=== PATIENT | male | born 1995 | race Caucasian/White ===

== ENCOUNTER 2018-06-01 15:20 | Inpatient (IN) | payer OTHER ==
--- NOTE | 2018-06-01 16:04 | ED ---
Abdominal Pain HPI - General Chief Complaint: Abdominal Pain Stated Complaint: GI issues Time Seen by Provider: 06/01/18 15:27 Source: patient, EMS, RN notes reviewed, old records reviewed Mode of arrival: EMS Limitations: no limitations - History of Present Illness Initial Comments: Patient is a 22-year-old male who presents emergency room stating she's complained of a bowel obstruction. Patient was transferred from [facility]. Patient was having diffuse lower abdominal pain for the past 3-4 days. Patient reports it was more severe and he has had vomiting episodes starting at 6 AM. Patient was started on IV fluids and lab work was obtained here. Had an elevated white blood cell count of 29.9 and lactic acid of 4.4. Patient was started on Avelox and Flagyl. Patient arrives to emergency department stating that he has no complaints at this time. They did arrive with an NG tube. - Related Data Home Medications Medication Instructions Recorded Confirmed Albuterol Inhaler [Ventolin Hfa 2 puff INHALATION RT-Q4H PRN 06/01/18 06/01/18 Inhaler] Fluticasone Nasal [place] [Flonase 1 spray EA NOSTRIL DAILY 06/01/18 06/01/18 Nasal [place]] Methylphenidate HCl 30 mg PO QAM 06/01/18 06/01/18 [Methylphenidate HCl CD] Ranitidine HCl [Zantac] 150 mg PO HS 06/01/18 06/01/18 cloNIDine HCL [Catapres] 0.1 mg PO BID 06/01/18 06/01/18 cloNIDine HCL [Catapres] 0.2 mg PO HS 06/01/18 06/01/18 Allergies Allergy/AdvReac Type Severity Reaction Status Date / Time Penicillins Allergy Unknown Verified 06/01/18 15:29 Childhood Review of Systems ROS Statement: Those systems with pertinent positive or pertinent negative responses have been documented in the HPI. ROS Other: All systems not noted in ROS Statement are negative. Past Medical History Past Medical History: GERD/Reflux History of Any Multi-Drug Resistant Organisms: None Reported Past Surgical History: No Surgical Hx Reported Past Psychological History: No Psychological Hx Reported Smoking Status: Never smoker Past Alcohol Use History: None Reported Past Drug Use History: None Reported General Exam - General Exam Comments Initial Comments: Patient is a 22-year-old male. Alert and oriented. Patient has NG tube in place. He appears in no acute distress at this time. Limitations: no limitations General appearance: alert, in no apparent distress Head exam: Present: atraumatic, normocephalic, normal inspection Eye exam: Present: normal appearance, PERRL, EOMI. Absent: scleral icterus, conjunctival injection, periorbital swelling ENT exam: Present: normal exam, mucous membranes moist, other ( has NG tube in place.) Neck exam: Present: normal inspection. Absent: tenderness, meningismus, lymphadenopathy Respiratory exam: Present: normal lung sounds bilaterally. Absent: respiratory distress, wheezes, rales, rhonchi, stridor Cardiovascular Exam: Present: regular rate, normal rhythm, normal heart sounds. Absent: systolic murmur, diastolic murmur, rubs, gallop, clicks GI/Abdominal exam: Present: soft, diminished bowel sounds, other (Left lower quadrant tenderness.). Absent: distended, tenderness, guarding, rebound, rigid , normal bowel sounds Extremities exam: Present: normal inspection, full ROM, normal capillary refill. Absent: tenderness, pedal edema, joint swelling, calf tenderness Back exam: Present: normal inspection Neurological exam: Present: alert, oriented X3, CN II-XII intact Psychiatric exam: Present: normal affect, normal mood Skin exam: Present: warm, dry, intact, normal color. Absent: rash Course Vital Signs 06/01/18 15:30 Temperature 97.9 F Pulse Rate 103 H Respiratory 20 Rate Blood Pressure 134/91 O2 Sat by Pulse 98 Oximetry Medical Decision Making - Medical Decision Making Patient is a 22-year-old male transferred from [facility] presents emergency Department with a diagnosis of small bowel obstruction. He was found to have significantly elevated white blood cell count 29.9 and lactic acid of 4.4. He was given a liter bolus, Flagyl and Avelox. Patient is very thin, no significant past medical history. CT report states this follows, numerous dilated small bowel loops with air-fluid levels measuring up to 4.6 cm there is prominent fluid distention of the stomach and even fluid distention of the lower esophagus. Findings suggestive of a high-grade small bowel obstruction. Some distal small bowel loops are completely collapsed further supporting small bowel obstruction. The cecum is low-lying pain in the posterior pelvis. Suspected transition point due to be somewhere in this location. Unable to delineate structures including appendix due to lack of contrast. There is no evidence of free air. Patient had a proximally 600 mL of fluid from the NG tube. He has been resting comfortably bed at this time. We'll continue the antibiotics and fluids for the Patient. Case discussed with Dr. Baxter by Dr. Wang. - Radiology Data Radiology results: report reviewed Numerous dilated small bowel loops with air-fluid levels measuring up to 4.6 cm there is prominent fluid distention of the stomach and even fluid distention of the lower esophagus. Findings suggestive of a high-grade small bowel obstruction. Some distal small bowel loops are completely collapsed further supporting small bowel obstruction. The cecum is low-lying pain in the posterior pelvis. Suspected transition point due to be somewhere in this location. Unable to delineate structures including appendix due to lack of contrast. There is no evidence of free air. Disposition Clinical Impression: SBO (small bowel obstruction), Leukocytosis, Lactic acid acidosis Disposition: ADMITTED IP TO THIS [facility] Condition: Stable Is patient prescribed a controlled substance at d/c from ED?: No Referrals: Edgardo Romero MD [Primary Care Provider] - 1-2 days Time of Disposition: 17:09
[2018-06-01] MEDS ORDERED: ONDANSETRON 4 MG/2 ML VIAL IVP PRN (17:10)
[2018-06-01] MEDS ORDERED: NALOXONE 0.4 MG/ML 1 ML VIAL IV PRN (17:10)
[2018-06-01] MEDS ORDERED: LEVOFLOXACIN 500MG-D5W PMX 500 MG in DEXTROSE/WATER 1 100ML.BAG IVPB STA (17:16)
[2018-06-01] MEDS: MORPHINE SULFATE 4 MG/ML SYRINGE IV PRN (17:34)
[2018-06-01] MEDS: SODIUM CHLORIDE 0.9% 1,000 ML IV SCH ×2 (17:34→21:32)
[2018-06-01 18:32] LABS: Basophils % (A) 0 %; Eosinophils % (A) 0 %; HCT 53.8 % (39.0-53.0); Lymphocytes # (A) 0.7 k/uL (1.0-4.8); Lymphocytes % (A) 3 %; MCH 30.5 pg (25.0-35.0); MCHC 33.5 g/dL (31.0-37.0); Mean Platelet Volume 7.5; Monocytes # (A) 1.2 k/uL (0-1.0); Monocytes % (A) 5 %; Neutrophils # (A) 20.7 k/uL (1.3-7.7); Neutrophils % (A) 90 %; Platelet Count 320 k/uL (150-450); RBC 5.91 m/uL (4.30-5.90); RDW 12.6 % (11.5-15.5); WBC 22.9 k/uL (3.8-10.6)
[2018-06-01 18:48] LABS: Albumin 5.1 g/dL (3.5-5.0); Calcium 10.2 mg/dL (8.4-10.2); Potassium 5.3 mmol/L (3.5-5.1); Total Bilirubin 0.6 mg/dL (0.2-1.3)
[2018-06-01] MEDS ORDERED: SODIUM CHLORIDE 0.9% 1,000 ML IV ONE (19:23)
[2018-06-01] MEDS: metroNIDAZOLE-NS PMX 500 MG in SALINE 1 100ML.BAG IVPB SCH (19:28)
--- NOTE | 2018-06-01 19:28 | P.GSHP ---
History of Present Illness H&P Date: 06/01/18 Chief Complaint: Small bowel obstruction 22-year-old male presents to [facility] with complaints of abdominal pain that began 3-4 days ago. He states to me that the pain can mainly yesterday. He says he has not ate or drank anything in the last 24-48 hours however. No history of similar events in the past. Pain was bilateral lower quadrants. Nonlocalizing. Denied fevers. In the ER at the outside institution his white count was noted to be elevated at 29.9. Lactic acid 4.4. Repeat labs here show a slightly improved white blood cell count with a normal lactic acid of 2. Amylase is slightly elevated. Nasogastric tube was placed with significant output reportedly. Patient denies any previous abdominal surgeries. Usually has one bowel movement per day. No rectal bleeding. No family history of inflammatory bowel disease. CAT scan showed distal high-grade small bowel obstruction. Structures difficult to visualize because of the patient's lack of intra-abdominal fat. Patient says his pain is improved currently. - Review of Systems Comment: The patient denies any acute changes in vision or hearing, no dysphagia or odynophagia, no chest pain or shortness of breath, no dysuria or hematuria, no headache, no runny nose, no rectal bleeding or melena, no unexplained weight loss Past Medical History Past Medical History: GERD/Reflux History of Any Multi-Drug Resistant Organisms: None Reported Past Surgical History: No Surgical Hx Reported Past Psychological History: No Psychological Hx Reported Smoking Status: Never smoker Past Alcohol Use History: None Reported Past Drug Use History: None Reported Medications and Allergies Home Medications Medication Instructions Recorded Confirmed Type Albuterol Inhaler [Ventolin Hfa 2 puff INHALATION RT-Q4H PRN 06/01/18 06/01/18 History Inhaler] Fluticasone Nasal [place] [Flonase 1 spray EA NOSTRIL DAILY 06/01/18 06/01/18 History Nasal [place]] Methylphenidate HCl 30 mg PO QAM 06/01/18 06/01/18 History [Methylphenidate HCl CD] Ranitidine HCl [Zantac] 150 mg PO HS 06/01/18 06/01/18 History cloNIDine HCL [Catapres] 0.1 mg PO BID 06/01/18 06/01/18 History cloNIDine HCL [Catapres] 0.2 mg PO HS 06/01/18 06/01/18 History Allergies Allergy/AdvReac Type Severity Reaction Status Date / Time Penicillins Allergy Unknown Verified 06/01/18 15:29 Childhood Surgical - Exam Vital Signs Temp Pulse Resp BP Pulse Ox 97.9 F 103 H 20 134/91 98 06/01/18 15:30 06/01/18 15:30 06/01/18 15:30 06/01/18 15:30 06/01/18 15:30 Physical exam: General: Thin white male appears slightly malnourished HEENT: Normocephalic, sclerae nonicteric Abdomen: Slightly distended, mild diffuse tenderness increased left lower quadrant Extremities: No edema Neuro: Alert and oriented Results - Labs 06/01/18 18:15 06/01/18 18:15 Abnormal Lab Results - Last 24 Hours (Table) 06/01/18 06/01/18 Range/Units 18:15 18:15 WBC 22.9 H (3.8-10.6) k/uL RBC 5.91 H (4.30-5.90) m/uL Hgb 18.0 H (13.0-17.5) gm/dL Hct 53.8 H (39.0-53.0) % Neutrophils # 20.7 H (1.3-7.7) k/uL Lymphocytes # 0.7 L (1.0-4.8) k/uL Monocytes # 1.2 H (0-1.0) k/uL Potassium 5.3 H (3.5-5.1) mmol/L BUN 31 H (9-20) mg/dL Creatinine 2.31 H (0.66-1.25) mg/dL Glucose 109 H (74-99) mg/dL ALT 14 L (21-72) U/L Total Protein 9.0 H (6.3-8.2) g/dL Albumin 5.1 H (3.5-5.0) g/dL Diabetes panel 06/01/18 Range/Units 18:15 Sodium 145 (137-145) mmol/L Potassium 5.3 H (3.5-5.1) mmol/L Chloride 106 (98-107) mmol/L Carbon Dioxide 24 (22-30) mmol/L BUN 31 H (9-20) mg/dL Creatinine 2.31 H (0.66-1.25) mg/dL Glucose 109 H (74-99) mg/dL Calcium 10.2 (8.4-10.2) mg/dL AST 27 (17-59) U/L ALT 14 L (21-72) U/L Alkaline Phosphatase 63 (38-126) U/L Total Protein 9.0 H (6.3-8.2) g/dL Albumin 5.1 H (3.5-5.0) g/dL Calcium panel 06/01/18 Range/Units 18:15 Calcium 10.2 (8.4-10.2) mg/dL Albumin 5.1 H (3.5-5.0) g/dL Pituitary panel 06/01/18 Range/Units 18:15 Sodium 145 (137-145) mmol/L Potassium 5.3 H (3.5-5.1) mmol/L Chloride 106 (98-107) mmol/L Carbon Dioxide 24 (22-30) mmol/L BUN 31 H (9-20) mg/dL Creatinine 2.31 H (0.66-1.25) mg/dL Glucose 109 H (74-99) mg/dL Calcium 10.2 (8.4-10.2) mg/dL Adrenal panel 06/01/18 Range/Units 18:15 Sodium 145 (137-145) mmol/L Potassium 5.3 H (3.5-5.1) mmol/L Chloride 106 (98-107) mmol/L Carbon Dioxide 24 (22-30) mmol/L BUN 31 H (9-20) mg/dL Creatinine 2.31 H (0.66-1.25) mg/dL Glucose 109 H (74-99) mg/dL Calcium 10.2 (8.4-10.2) mg/dL Total Bilirubin 0.6 (0.2-1.3) mg/dL AST 27 (17-59) U/L ALT 14 L (21-72) U/L Alkaline Phosphatase 63 (38-126) U/L Total Protein 9.0 H (6.3-8.2) g/dL Albumin 5.1 H (3.5-5.0) g/dL Assessment and Plan (1) SBO (small bowel obstruction) Narrative/Plan: 22-year-old male admitted to the hospital appearing quite ill on arrival. Doing better currently. CAT scan suggesting high-grade small bowel obstruction. Etiology unclear. We'll review recent CAT scan. Tentatively will plan diagnostic laparoscopy tomorrow unless findings on CAT scan strongly support the diagnosis of inflammatory bowel disease which does not appear to be the case. Current Visit: Yes Status: Acute Code(s): K56.609 - UNSP INTESTNL OBST, UNSP TO PARTIAL VERSUS COMPLETE OBST SNOMED Code(s): 018619210
[2018-06-02] MEDS: HEPARIN SODIUM,PORCINE 5,000 UNIT/ML 1 ML VIAL SQ SCH ×3 (00:11→17:39)
[2018-06-02] MEDS: MORPHINE SULFATE 4 MG/ML SYRINGE IV PRN ×2 (01:13→17:38)
[2018-06-02 01:36] LABS: Glucose,Whole Blood 98 mg/dL (75-99)
[2018-06-02] MEDS: metroNIDAZOLE-NS PMX 500 MG in SALINE 1 100ML.BAG IVPB SCH ×3 (02:34→18:51)
[2018-06-02] MEDS: SODIUM CHLORIDE 0.9% 1,000 ML IV SCH ×6 (02:37→22:13)
[2018-06-02] MEDS: PANTOPRAZOLE 40 MG/10 ML VIAL IV SCH (08:49)
[2018-06-02 08:52] LABS: Basophils % (A) 0 %; Eosinophils # (A) 0.1 k/uL (0-0.7); Eosinophils % (A) 1 %; HCT 49.1 % (39.0-53.0); HGB 15.7 gm/dL (13.0-17.5); Lymphocytes # (A) 0.7 k/uL (1.0-4.8); Lymphocytes % (A) 7 %; MCH 29.2 pg (25.0-35.0); MCHC 31.9 g/dL (31.0-37.0); MCV 91.8 fL (80.0-100.0); Mean Platelet Volume 7.7; Monocytes # (A) 0.9 k/uL (0-1.0); Monocytes % (A) 8 %; Neutrophils # (A) 8.4 k/uL (1.3-7.7); Neutrophils % (A) 82 %; Platelet Count 266 k/uL (150-450); RBC 5.36 m/uL (4.30-5.90); RDW 12.5 % (11.5-15.5); WBC 10.3 k/uL (3.8-10.6)
[2018-06-02 09:04] LABS: Albumin 3.7 g/dL (3.5-5.0); Calcium 8.7 mg/dL (8.4-10.2); Potassium 4.8 mmol/L (3.5-5.1); Total Bilirubin 0.8 mg/dL (0.2-1.3); Total Protein 6.7 g/dL (6.3-8.2)
[2018-06-02] MEDS ORDERED: ALBUTEROL NEBULIZED 2.5 MG/3 ML INHALATION PRN (12:41)
--- NOTE | 2018-06-02 12:44 | P.CONS ---
History of Present Illness - Reason for Consult lactic acidosis leukocytosisacute renal failure - History of Present Illness patient is a [id number] gentleman with known history of gastric reflux disease came in with comments of nausea vomiting multiple episodes for last 3-4 days and this has been going on since . Patient is found to have small bowel obstructionNG tube was placed and patient has significant output from since today morning patient had about a liter for from the NG tube patient is going for diagnostic laparoscopy laparoscopic patient's white blood cell count is elevated troponin and thousand with elevated lactic acid of 4.4 and creatinine of 2.5 all of which is getting better patient is an 1 50 mL of normal saline and patient's abdominal pain is better at this time. Patient had severe abdominal pain sharp in nature diffuse. Review of Systems REVIEW OF SYSTEMS: CONSTITUTIONAL: No fever, no malaise, no fatigue. HEENT: No recent visual problems or hearing problems. Denied any sore throat. CARDIOVASCULAR: No chest pain, orthopnea, PND, no palpitations, no syncope. PULMONARY: No shortness of breath, no cough, no hemoptysis. GASTROINTESTINAL:as mentioned in HPI NEUROLOGICAL: No headaches, no weakness, no numbness. HEMATOLOGICAL: Denies any bleeding or petechiae. GENITOURINARY: Denies any burning micturition, frequency, or urgency. MUSCULOSKELETAL/RHEUMATOLOGICAL: Denies any joint pain, swelling, or any muscle pain. ENDOCRINE: Denies any polyuria or polydipsia. The rest of the 14-point review of systems is negative. Past Medical History Past Medical History: GERD/Reflux History of Any Multi-Drug Resistant Organisms: None Reported Past Surgical History: No Surgical Hx Reported Past Anesthesia/Blood Transfusion Reactions: No Reported Reaction Past Psychological History: No Psychological Hx Reported Smoking Status: Never smoker Past Alcohol Use History: None Reported Past Drug Use History: None Reported - Past Family History Mother Family Medical History: Diabetes Mellitus Medications and Allergies Home Medications Medication Instructions Recorded Confirmed Type Albuterol Inhaler [Ventolin Hfa 2 puff INHALATION RT-Q4H PRN 06/01/18 06/01/18 History Inhaler] Fluticasone Nasal [place] [Flonase 1 spray EA NOSTRIL DAILY 06/01/18 06/01/18 History Nasal [place]] Methylphenidate HCl 30 mg PO QAM 06/01/18 06/01/18 History [Methylphenidate HCl CD] Ranitidine HCl [Zantac] 150 mg PO HS 06/01/18 06/01/18 History cloNIDine HCL [Catapres] 0.1 mg PO BID 06/01/18 06/01/18 History cloNIDine HCL [Catapres] 0.2 mg PO HS 06/01/18 06/01/18 History Allergies Allergy/AdvReac Type Severity Reaction Status Date / Time Penicillins Allergy Unknown Verified 06/01/18 15:29 Childhood Physical Exam Vitals: Vital Signs Temp Pulse Pulse Resp BP BP Pulse Ox 06/02/18 07:16 98.0 F 62 133/81 98 06/02/18 01:19 97.7 F 96 16 135/82 96 06/02/18 01:00 97.9 F 71 16 143/87 99 06/02/18 00:27 97.3 F L 75 16 161/97 97 06/01/18 22:39 97.8 F 71 16 130/84 99 06/01/18 19:30 97.8 F 67 17 130/83 94 L 06/01/18 15:30 97.9 F 103 H 20 134/91 98 Intake and Output 06/01/18 06/02/18 06/02/18 22:59 06:59 14:59 Intake Total 2200 Output Total 200 400 300 Balance -200 1800 -300 Intake: Intake, IV Titration 2200 Amount Sodium Chloride 0.9% 1, 1200 000 ml @ 150 mls/hr IV . Q6H40M [facility] Rx#:[id number] Sodium Chloride 0.9% 1, 1000 000 ml @ 999 mls/hr IV . Q1H1M [facility] Rx#:[id number] Output: Urine 200 400 300 Other: Voiding Method Urinal Urinal Weight 52.163 kg PHYSICAL EXAMINATION: GENERAL: The patient is alert and oriented x3, not in any acute distress. Thin built dry mucous membranes has an NG tube in place draining about 1 L this morning HEENT: Pupils are round and equally reacting to light. EOMI. No scleral icterus. No conjunctival pallor. Normocephalic, atraumatic. No pharyngeal erythema. No thyromegaly. CARDIOVASCULAR: S1 and S2 present. No murmurs, rubs, or gallops. PULMONARY: Chest is clear to auscultation, no wheezing or crackles. ABDOMEN: Soft, nontender no rebound or rigidity sluggish bowels sounds MUSCULOSKELETAL: No joint swelling or deformity. EXTREMITIES: No cyanosis, clubbing, or pedal edema. NEUROLOGICAL: Gross neurological examination did not reveal any focal deficits. SKIN: No rashes. Results CBC & Chem 7: 06/02/18 06:54 06/02/18 06:54 Labs: Abnormal Lab Results - Last 24 Hours (Table) 06/01/18 06/01/18 06/02/18 Range/Units 18:15 18:15 06:54 WBC 22.9 H (3.8-10.6) k/uL RBC 5.91 H (4.30-5.90) m/uL Hgb 18.0 H (13.0-17.5) gm/dL Hct 53.8 H (39.0-53.0) % Neutrophils # 20.7 H 8.4 H (1.3-7.7) k/uL Lymphocytes # 0.7 L 0.7 L (1.0-4.8) k/uL Monocytes # 1.2 H (0-1.0) k/uL Potassium 5.3 H (3.5-5.1) mmol/L Chloride (98-107) mmol/L BUN 31 H (9-20) mg/dL Creatinine 2.31 H (0.66-1.25) mg/dL Glucose 109 H (74-99) mg/dL ALT 14 L (21-72) U/L Total Protein 9.0 H (6.3-8.2) g/dL Albumin 5.1 H (3.5-5.0) g/dL Amylase (30-110) U/L 06/02/18 Range/Units 06:54 WBC (3.8-10.6) k/uL RBC (4.30-5.90) m/uL Hgb (13.0-17.5) gm/dL Hct (39.0-53.0) % Neutrophils # (1.3-7.7) k/uL Lymphocytes # (1.0-4.8) k/uL Monocytes # (0-1.0) k/uL Potassium (3.5-5.1) mmol/L Chloride 112 H (98-107) mmol/L BUN 36 H (9-20) mg/dL Creatinine 1.78 H (0.66-1.25) mg/dL Glucose (74-99) mg/dL ALT 16 L (21-72) U/L Total Protein (6.3-8.2) g/dL Albumin (3.5-5.0) g/dL Amylase 169 H (30-110) U/L Assessment and Plan Plan: -small bowel obstruction: Diagnostic laparoscopy today, patient is an NG tube in place IV fluids at 1 50 mL per hour -Acute renal failure: Secondary to severe intravascular did 100 patient nausea vomiting improving now present creatinine is 1.5 can you to IV fluids expected to improve with IV fluids -Leukocytosis reactive in nature may not require any antibiotics presently on levofloxacin and metronidazole which will be continued until the surgery is done probably can be discontinued after surgery depending on operative findings -lactic is doses: Secondary to severe intravascular depletion from nausea vomiting anion gap and non-anion gap and work acidosis secondary to lactic acidosis and hyperkalemia respectively -psychiatric issues: medications will be resumed as necessary can -Gastroesophageal reflux disease patient is presently on Protonix
[2018-06-02] MEDS ORDERED: LACTATED RINGERS 1,000 ML IV ONE ×3 (12:53→15:07)
[2018-06-02] MEDS ORDERED: ESMOLOL 100 MG/10 ML VIAL ONE (13:41)
[2018-06-02] MEDS ORDERED: SUCCINYLCHOLINE CHLORIDE 100 MG/5 ML SYR IV ONE (13:41)
[2018-06-02] MEDS ORDERED: KETAMINE 10 MG/ML 20 ML VIAL ONE (13:41)
[2018-06-02] MEDS ORDERED: PROPOFOL 10 MG/ML 20 ML VIAL IV ONE (13:41)
[2018-06-02] MEDS ORDERED: LIDOCAINE 1% INJ 10MG/ML (20 ML MDV) ONE (13:41)
[2018-06-02] MEDS ORDERED: NEOSTIGMINE 1 MG/ML 10 ML VIAL ONE (13:41)
[2018-06-02] MEDS ORDERED: GLYCOPYRROLATE 0.2 MG/ML 2 ML VIAL ONE (13:41)
[2018-06-02] MEDS ORDERED: fentaNYL (PF) 50 MCG/ML 2 ML AMP ONE (13:41)
[2018-06-02] MEDS ORDERED: ROCURONIUM BROMIDE 10 MG/ML 10 ML VIAL IV ONE (13:41)
[2018-06-02] MEDS ORDERED: MIDAZOLAM 2 MG/2 ML VIAL ONE (13:41)
[2018-06-02] MEDS ORDERED: BUPIVACAIN-EPI 0.25%-1:200,000 30 ML VIAL SQ ONE ×2 (14:09)
[2018-06-02] MEDS ORDERED: HYDROmorphone 1 MG/ML 1 ML SYRINGE IVP ONE (15:53)
--- NOTE | 2018-06-02 17:31 | P.OP ---
Date of Procedure: 06/02/18 Procedure(s) Performed: PREOPERATIVE DIAGNOSIS: Small bowel obstruction POSTOPERATIVE DIAGNOSIS: Small bowel obstruction secondary to adhesions/Meckel' s diverticulum PROCEDURE: Laparoscopic lysis of adhesions, mini laparotomy with small bowel resection SURGEON: Vee EBL: Total ANESTHESIA: General COMPLICATIONS: None OPERATIVE PROCEDURE: The patient was brought and placed on the operating table in the supine position. The patient was placed under general anesthesia. The abdomen was prepped and draped in the usual sterile fashion. A small vertical infraumbilical incision was made. The fascia was retracted anteriorly with Grayson forceps. The Veress needle was advanced into the peritoneal cavity. The saline drop test was normal. Insufflation took place to 15 mmHg. A 5 mm trocar was then placed. 2 additional 5 mm trochars were then placed in the left lower quadrant. The bowel was inspected. The proximal bowel was significantly distended. As I followed the distended bowel distally we encountered the transition point approximately 12 inches or so proximal to the ileocecal valve. There was a Meckel's diverticulum and adjacent to that there was a segment of small intestine that was densely adhesed to the right pelvic sidewall. This was creating the transition point at that location. Using sharp and blunt dissection I was able to mobilize the small bowel away from the pelvic sidewall. There was appeared to be some narrowing at this section. The etiology was unclear but may have been related to the adjacent Meckel's diverticulum. I decided to proceed with a small bowel resection. The remainder of the abdominal cavity inspected laparoscopically appeared normal although limitations because of the distended bowel were noted. The Meckel's itself was grasped. An incision was made approximately 3 cm in length at the umbilical trocar entrance site. Dissection through the subcutaneous tissues and fascia took place using electrocautery. The bowel was brought out through this location. The bowel proximal to the Meckel's was divided using a linear 75 stapler. The bowel distal to this stenosis segment was divided again using a linear 75 stapler. The mesentery was divided using the LigaSure device. A uoqa-ry-daxe anastomosis then took place by removing the antimesenteric portion of the staple line. A linear 75 stapler was fired along the antimesenteric border. The remaining defect was closed using a TX 60 device. TX 60 stapler line was imbricated using interrupted 3-0 GI silk sutures. A 3-0 GI silk crotch stitch was also placed. The bowel was reduced back in the para-cavity. No bleeding was seen. The fascia was reapproximated using a running #1 Vicryl suture. The subcutaneous tissues were closed using 3-0 Vicryl sutures. The skin at all 3 sites was closed using 4-0 Monocryl sutures. Skin glue and sterile dressings then applied. DISPOSITION: Stable to recovery room
[2018-06-02] MEDS: KETOROLAC 30 MG/ML 1 ML VIAL IVP PRN (17:37)
[2018-06-02] MEDS: LEVOFLOXACIN 750MG-D5W PMX 750 MG in DEXTROSE/WATER 1 150ML.BAG IVPB SCH (20:22)
[2018-06-03] MEDS: SODIUM CHLORIDE 0.9% 1,000 ML IV SCH ×5 (00:08→18:36)
[2018-06-03] MEDS: KETOROLAC 30 MG/ML 1 ML VIAL IVP PRN ×2 (00:52→18:33)
[2018-06-03] MEDS: HEPARIN SODIUM,PORCINE 5,000 UNIT/ML 1 ML VIAL SQ SCH ×3 (00:52→17:16)
[2018-06-03] MEDS: metroNIDAZOLE-NS PMX 500 MG in SALINE 1 100ML.BAG IVPB SCH ×3 (00:52→17:16)
[2018-06-03 08:06] LABS: Anion Gap 6 mmol/L; Basophils % (A) 0 %; Blood Urea Nitrogen 22 mg/dL (9-20); Calcium 8.4 mg/dL (8.4-10.2); Carbon Dioxide 25 mmol/L (22-30); Chloride 111 mmol/L (98-107); Eosinophils # (A) 0.1 k/uL (0-0.7); Eosinophils % (A) 2 %; Glucose 80 mg/dL (74-99); HCT 39.7 % (39.0-53.0); HGB 12.7 gm/dL (13.0-17.5); Lymphocytes % (A) 15 %; MCH 29.7 pg (25.0-35.0); MCV 92.8 fL (80.0-100.0); Mean Platelet Volume 7.5; Monocytes # (A) 0.6 k/uL (0-1.0); Monocytes % (A) 8 %; Neutrophils % (A) 72 %; Platelet Count 204 k/uL (150-450); Potassium 4.5 mmol/L (3.5-5.1); RBC 4.28 m/uL (4.30-5.90); RDW 12.4 % (11.5-15.5); Sodium 142 mmol/L (137-145); WBC 6.9 k/uL (3.8-10.6)
[2018-06-03] MEDS: PANTOPRAZOLE 40 MG/10 ML VIAL IV SCH (10:37)
[2018-06-03] MEDS: FLUTICASONE 50MCG/SPRAY NASAL 16GM EA NOSTRIL SCH (10:53)
--- NOTE | 2018-06-03 11:46 | P.PN ---
Subjective Progress Note Date: 06/03/18 Principal diagnosis: Small bowel obstruction Patient feels much better today. He is passing flatus. T-max 99.5. White blood cell count normal. Apparently they had a place a Alex catheter for urinary retention. He is asking for the nasogastric tube to be removed. Objective - Vital Signs Vital signs: Vital Signs Temp 98.8 F 06/03/18 07:23 Pulse 63 06/03/18 07:23 Resp 16 06/03/18 07:23 BP 128/74 06/03/18 07:23 Pulse Ox 99 06/03/18 07:23 Intake & Output 06/02/18 06/03/18 06/03/18 18:59 06:59 18:59 Intake Total 3400 1600 Output Total 1425 900 Balance 1975 700 Intake: IV 2500 Intake, IV Titration 900 1600 Amount Levofloxacin 750Mg-D5w 150 Pmx 750 mg In Dextrose/ Water 1 150ml.bag @ 100 mls/hr IVPB Q24H [facility] Rx#: [id number] Sodium Chloride 0.9% 1, 1250 000 ml @ 100 mls/hr IV . Q10H [facility] Rx#:[id number] Sodium Chloride 0.9% 1, 900 000 ml @ 150 mls/hr IV . Q6H40M [facility] Rx#:[id number] metroNIDAZOLE-NS PMX 500 200 mg In Saline 1 100ml.bag @ 100 mls/hr IVPB Q8H [facility] Rx#:[id number] Output: Gastric Drainage 150 Urine 1250 900 Straight 950 900 Estimated Blood Loss 25 Other: Voiding Method Urinal Indwelling Catheter - Exam Abdomen: Soft, nondistended, incisions clean and dry, mild tenderness - Labs CBC & Chem 7: 06/03/18 06:46 06/03/18 06:46 Labs: Abnormal Lab Results - Last 24 Hours (Table) 06/03/18 06/03/18 Range/Units 06:46 06:46 RBC 4.28 L (4.30-5.90) m/uL Hgb 12.7 L D (13.0-17.5) gm/dL Chloride 111 H (98-107) mmol/L BUN 22 H (9-20) mg/dL Assessment and Plan (1) SBO (small bowel obstruction) Narrative/Plan: We'll remove nasogastric tube. Continue nothing by mouth except for ice chips today. Start liquid diet tomorrow. Ambulate. Keep Alex until tomorrow morning. Current Visit: Yes Status: Acute Code(s): K56.609 - UNSP INTESTNL OBST, UNSP TO PARTIAL VERSUS COMPLETE OBST SNOMED Code(s): 484949037
[2018-06-03 14:13] VITALS: BMI 18.0
--- NOTE | 2018-06-03 16:33 | P.PN ---
Subjective 22-year-old male admitted secondary to small bowel obstruction patient had minilaparotomy and had partial small bowel resection and small bowel obstruction is believed to be secondary to mucus diverticulum or adhesions. Patient is feeling better does have sluggish bowel sounds did not pass gas yet. Did not move his bowel yet. Patient's electrolytes kidney function improved area creatinine has come down to 1.22 from 2.31 on admission leukocytosis resolved. Patient's IV fluids will be cut down to 75 mL per hour. Constitutional: Denied any fatigue denied any fever. Cardio vascular: denied any chest pain, palpitations Gastrointestinal denied any nausea vomiting Pulmonary: Denied any shortness of breath cough Neurologic denied any new focal deficits All inpatient medications were reviewed and appropriate changes in these medications as dictated in the interval history and assessment and plan. Objective - Vital Signs Vital signs: Vital Signs Temp 99.6 F 06/03/18 14:24 Pulse 86 06/03/18 14:24 Resp 16 06/03/18 15:43 BP 120/74 06/03/18 14:24 Pulse Ox 98 06/03/18 14:24 Intake & Output 06/02/18 06/03/18 06/03/18 18:59 06:59 18:59 Intake Total 3400 1600 1200 Output Total 1151 940 1560 Balance 1975 700 0 Weight 52.163 kg Intake: IV 2500 Intake, IV Titration 900 1600 1200 Amount Levofloxacin 750Mg-D5w 150 Pmx 750 mg In Dextrose/ Water 1 150ml.bag @ 100 mls/hr IVPB Q24H MICHAEL Rx#: [id number] Sodium Chloride 0.9% 1, 1250 000 ml @ 100 mls/hr IV . Q10H MICHAEL Rx#:[id number] Sodium Chloride 0.9% 1, 900 1200 000 ml @ 150 mls/hr IV . Q6H40M MICHAEL Rx#:[id number] metroNIDAZOLE-NS PMX 500 200 mg In Saline 1 100ml.bag @ 100 mls/hr IVPB Q8H MICHAEL Rx#:[id number] Output: Gastric Drainage 150 Urine 1880 319 1307 Straight 950 900 Uretheral (Alex) 1200 Estimated Blood Loss 25 Other: Voiding Method Urinal Indwelling Catheter - Exam PHYSICAL EXAMINATION: GENERAL: The patient is alert and oriented x3, not in any acute distress. Thin built HEENT: Pupils are round and equally reacting to light. EOMI. No scleral icterus. No conjunctival pallor. Normocephalic, atraumatic. No pharyngeal erythema. No thyromegaly. CARDIOVASCULAR: S1 and S2 present. No murmurs, rubs, or gallops. PULMONARY: Chest is clear to auscultation, no wheezing or crackles. ABDOMEN: Soft, nontender no rebound or rigidity sluggish bowels sounds, surgical site area appears to be clean MUSCULOSKELETAL: No joint swelling or deformity. EXTREMITIES: No cyanosis, clubbing, or pedal edema. NEUROLOGICAL: Gross neurological examination did not reveal any focal deficits. SKIN: No rashes. - Labs CBC & Chem 7: 06/03/18 06:46 06/03/18 06:46 Labs: Abnormal Lab Results - Last 24 Hours (Table) 06/03/18 06/03/18 Range/Units 06:46 06:46 RBC 4.28 L (4.30-5.90) m/uL Hgb 12.7 L D (13.0-17.5) gm/dL Chloride 111 H (98-107) mmol/L BUN 22 H (9-20) mg/dL Assessment and Plan Plan: -small bowel obstruction: Status post partial small bowel resection and believed to be secondary to Meckel's diverticulum -Acute renal failure: Secondary to severe intravascular, improved and IV fluid management as mentioned above -Leukocytosis reactive in nature may not require any antibiotics presently on levofloxacin and metronidazole, these antibodies probably can be discontinued if agreeable by general surgery -lactic is doses: Secondary to severe intravascular depletion from nausea vomiting. Improved anion gap and non-anion gap [place] acidosis secondary to lactic acidosis and hyperchloremia respectively -psychiatric issues: medications will be resumed as necessary can -Gastroesophageal reflux disease patient is presently on Protonix
[2018-06-03] MEDS: LACTATED RINGERS 1,000 ML IV SCH (18:33)
[2018-06-03] MEDS: LEVOFLOXACIN 750MG-D5W PMX 750 MG in DEXTROSE/WATER 1 150ML.BAG IVPB SCH (18:33)
[2018-06-04] MEDS: HEPARIN SODIUM,PORCINE 5,000 UNIT/ML 1 ML VIAL SQ SCH ×3 (02:09→17:19)
[2018-06-04] MEDS: metroNIDAZOLE-NS PMX 500 MG in SALINE 1 100ML.BAG IVPB SCH ×3 (02:09→17:14)
[2018-06-04] MEDS: SODIUM CHLORIDE 0.9% 1,000 ML IV SCH ×7 (02:12→22:07)
[2018-06-04] MEDS: LACTATED RINGERS 1,000 ML IV SCH ×3 (04:49→22:05)
[2018-06-04 07:23] LABS: Basophils % (A) 1 %; Eosinophils # (A) 0.1 k/uL (0-0.7); Eosinophils % (A) 1 %; HGB 12.4 gm/dL (13.0-17.5); Lymphocytes # (A) 1.3 k/uL (1.0-4.8); Lymphocytes % (A) 21 %; MCH 29.6 pg (25.0-35.0); MCHC 32.5 g/dL (31.0-37.0); Mean Platelet Volume 7.8; Monocytes # (A) 0.5 k/uL (0-1.0); Monocytes % (A) 8 %; Neutrophils # (A) 4.2 k/uL (1.3-7.7); Neutrophils % (A) 67 %; Platelet Count 183 k/uL (150-450); RBC 4.17 m/uL (4.30-5.90); RDW 12.2 % (11.5-15.5); WBC 6.2 k/uL (3.8-10.6)
[2018-06-04 07:49] LABS: Anion Gap 5 mmol/L; Blood Urea Nitrogen 14 mg/dL (9-20); Calcium 8.8 mg/dL (8.4-10.2); Carbon Dioxide 28 mmol/L (22-30); Chloride 108 mmol/L (98-107); Glucose 93 mg/dL (74-99); Potassium 3.9 mmol/L (3.5-5.1); Sodium 141 mmol/L (137-145)
[2018-06-04] MEDS: PANTOPRAZOLE 40 MG/10 ML VIAL IV SCH (09:24)
[2018-06-04] MEDS: FLUTICASONE 50MCG/SPRAY NASAL 16GM EA NOSTRIL SCH (09:24)
--- NOTE | 2018-06-04 16:00 | P.PN ---
Subjective Progress Note Date: 06/04/18 CHIEF COMPLAINT: Status post small bowel resection for small bowel obstruction HISTORY OF PRESENT ILLNESS: The patient is a 22 year old male who is status post small bowel resection for small bowel obstruction, postop day 2. He is doing very well. He is passing flatus and tolerating diet. No nausea or vomiting. PHYSICAL EXAM: VITAL SIGNS: Reviewed GENERAL: Well-developed in no acute distress. HEENT: No sclera icterus. Extraocular movements grossly intact. Moist buccal mucosa. Head is atraumatic, normocephalic. Hears conversational speech. No nasal drainage. NECK: Supple without lymphadenopathy. CHEST: Non-labored respirations and equal bilateral excursions. CARDIOVASCULAR: Regular rate with regular rhythm. ABDOMEN: Soft, nondistended, incisions clean dry and intact . MUSCULOSKELETAL: No clubbing, cyanosis or edema. NEUROLOGIC: No focal or lateralizing signs. Cranial nerves II through XII grossly intact. PSYCH: Alert and oriented to person, place and time. SKIN: Well perfused. Good skin turgor. LABS: Reviewed ASSESSMENT: 1. Small bowel obstruction status post small bowel resection PLAN: 1. Continue liquid diet. 2. Await bowel movement prior to discharge. Objective - Vital Signs Vital signs: Vital Signs Temp 98.6 F 06/04/18 14:25 Pulse 65 06/04/18 14:25 Resp 16 06/04/18 14:25 BP 141/81 06/04/18 14:25 Pulse Ox 98 06/04/18 14:25 Intake & Output 06/03/18 06/04/18 06/04/18 18:59 06:59 18:59 Intake Total 8808 347 7656 Output Total 2200 1400 1200 Balance -1000 -1160 250 Weight 52.163 kg Intake: Intake, IV Titration 1200 700 Amount Lactated Ringers 1,000 ml 700 @ 100 mls/hr IV .Q10H MICHAEL Rx#:[id number] Sodium Chloride 0.9% 1, 1200 000 ml @ 150 mls/hr IV . Q6H40M MICHAEL Rx#:[id number] Oral 240 750 Output: Urine 2200 1400 1200 Uretheral (Alex) 2200 1200 Other: Voiding Method Indwelling Catheter Indwelling Catheter - Labs CBC & Chem 7: 06/05/18 06:20 06/05/18 06:20 Labs: Abnormal Lab Results - Last 24 Hours (Table) 06/04/18 06/04/18 Range/Units 06:33 06:33 RBC 4.17 L (4.30-5.90) m/uL Hgb 12.4 L (13.0-17.5) gm/dL Hct 38.0 L (39.0-53.0) % Chloride 108 H (98-107) mmol/L Assessment and Plan (1) Meckel diverticulum Current Visit: Yes Status: Acute Code(s): Q43.0 - MECKEL'S DIVERTICULUM ( DISPLACED) (HYPERTROPHIC) SNOMED Code(s): 40452204 (2) Lactic acid acidosis Current Visit: Yes Status: Acute Code(s): E87.2 - ACIDOSIS SNOMED Code(s) : 45906083 (3) Leukocytosis Current Visit: Yes Status: Acute Code(s): D72.829 - ELEVATED WHITE BLOOD CELL COUNT, UNSPECIFIED SNOMED Code(s): 421138622 (4) SBO (small bowel obstruction) Current Visit: Yes Status: Acute Code(s): K56.609 - UNSP INTESTNL OBST, UNSP TO PARTIAL VERSUS COMPLETE OBST SNOMED Code(s): 430779501 (5) Status post small bowel resection Current Visit: Yes Status: Acute Code(s): Z90.49 - ACQUIRED ABSENCE OF OTHER SPECIFIED PARTS OF DIGESTIVE TRACT SNOMED Code(s): 392533242578794
[2018-06-04] MEDS: LEVOFLOXACIN 750MG-D5W PMX 750 MG in DEXTROSE/WATER 1 150ML.BAG IVPB SCH (18:20)
--- NOTE | 2018-06-04 20:52 | PN ---
PROGRESS NOTE DATE OF SERVICE: 06/04/2018 This 22-year-old gentleman was admitted with small-bowel obstruction and had a mini- laparotomy and partial small bowel resection. The patient being closely monitored. No chest pain. No palpitations. No fever. Diet is being slowly advanced. EXAM: Alert and oriented times three. Pulse 65, blood pressure 140/81, respiratory rate 16, temperature 98.2, pulse ox 98% on room air. HEENT is conjunctivae normal. Oral mucosa moist. Neck is no jugular venous distention. No carotid bruit. No lymph node enlargement. Cardiovascular: S1, S2. Respirations: Breath sounds diminished in the bases. No rhonchi. No crackles. Abdomen soft. Status post surgery. Legs are no edema, no swelling. Central nervous system: No focal deficits. LABS: WBC 6.2, hemoglobin 12.4, sodium 140, potassium 3.9. ASSESSMENT: 1. Small-bowel obstruction, status post partial small bowel resection, believed to be secondary to Meckel's diverticulum. 2. Acute renal failure secondary dehydration leukocytosis. 3. Lactic acidosis. 4. Psychiatric issues. 5. Gastroesophageal reflux disease. RECOMMENDATIONS AND DISCUSSION: Recommend to continue current medications, management and symptomatic treatment. Otherwise, creatinine has improved significantly. Continue the rest of medications. Closely follow with surgery. Guarded prognosis. Further recommendations to follow. MMODL / IJN: [id number] / MTDD
[2018-06-05] MEDS: HEPARIN SODIUM,PORCINE 5,000 UNIT/ML 1 ML VIAL SQ SCH ×2 (00:01→08:14)
[2018-06-05] MEDS: metroNIDAZOLE-NS PMX 500 MG in SALINE 1 100ML.BAG IVPB SCH ×2 (03:04→10:00)
[2018-06-05] MEDS: SODIUM CHLORIDE 0.9% 1,000 ML IV SCH ×2 (03:06→12:17)
[2018-06-05 07:00] LABS: Basophils % (A) 0 %; Eosinophils % (A) 1 %; HCT 37.3 % (39.0-53.0); HGB 12.4 gm/dL (13.0-17.5); Lymphocytes # (A) 1.6 k/uL (1.0-4.8); Lymphocytes % (A) 26 %; MCH 30.1 pg (25.0-35.0); MCHC 33.3 g/dL (31.0-37.0); MCV 90.3 fL (80.0-100.0); Mean Platelet Volume 7.4; Monocytes # (A) 0.4 k/uL (0-1.0); Monocytes % (A) 6 %; Neutrophils # (A) 3.8 k/uL (1.3-7.7); Neutrophils % (A) 64 %; Platelet Count 196 k/uL (150-450); RBC 4.14 m/uL (4.30-5.90); RDW 12.1 % (11.5-15.5); WBC 6.1 k/uL (3.8-10.6)
[2018-06-05 07:21] LABS: Anion Gap 6 mmol/L; Blood Urea Nitrogen 11 mg/dL (9-20); Calcium 8.4 mg/dL (8.4-10.2); Carbon Dioxide 26 mmol/L (22-30); Chloride 108 mmol/L (98-107); Glucose 92 mg/dL (74-99); Potassium 3.8 mmol/L (3.5-5.1); Sodium 140 mmol/L (137-145)
[2018-06-05] MEDS: PANTOPRAZOLE 40 MG/10 ML VIAL IV SCH (08:14)
[2018-06-05] MEDS: FLUTICASONE 50MCG/SPRAY NASAL 16GM EA NOSTRIL SCH (08:14)
[2018-06-05 10:39] VITALS: RESP 14
--- NOTE | 2018-06-05 13:34 | P.PN ---
Subjective Progress Note Date: 06/05/18 CHIEF COMPLAINT: Status post small bowel resection for small bowel obstruction HISTORY OF PRESENT ILLNESS: The patient is a 22 year old male who is status post small bowel resection for small bowel obstruction, postop day 3. He is ready to start regular diet. He is passing moderate flatus. Pain is well controlled PHYSICAL EXAM: VITAL SIGNS: Reviewed GENERAL: Well-developed in no acute distress. HEENT: No sclera icterus. Extraocular movements grossly intact. Moist buccal mucosa. Head is atraumatic, normocephalic. Hears conversational speech. No nasal drainage. NECK: Supple without lymphadenopathy. CHEST: Non-labored respirations and equal bilateral excursions. CARDIOVASCULAR: Regular rate with regular rhythm. ABDOMEN: Soft, nondistended, incisions clean dry and intact . MUSCULOSKELETAL: No clubbing, cyanosis or edema. NEUROLOGIC: No focal or lateralizing signs. Cranial nerves II through XII grossly intact. PSYCH: Alert and oriented to person, place and time. SKIN: Well perfused. Good skin turgor. LABS: Reviewed ASSESSMENT: 1. Small bowel obstruction status post small bowel resection PLAN: 1. Regular diet today. 2. Discharge home today after tolerating diet Objective - Vital Signs Vital signs: Vital Signs Temp 98.3 F 06/05/18 07:00 Pulse 59 L 06/05/18 07:00 Resp 14 06/05/18 07:00 BP 122/77 06/05/18 07:00 Pulse Ox 98 06/05/18 07:00 Intake & Output 06/04/18 06/05/18 06/05/18 18:59 06:59 18:59 Intake Total 2120 2724 360 Output Total 1200 680 Balance 920 2044 360 Intake: Intake, IV Titration 700 974 Amount Lactated Ringers 1,000 ml 700 @ 100 mls/hr IV .Q10H MICHAEL Rx#:[id number] Sodium Chloride 0.9% 1, 974 000 ml @ 150 mls/hr IV . Q6H40M MICHAEL Rx#:[id number] Oral 1420 1750 360 Output: Urine 1200 680 Uretheral (Alex) 1200 Other: Voiding Method Urinal # Voids 2 - Labs CBC & Chem 7: 06/05/18 06:20 06/05/18 06:20 Labs: Abnormal Lab Results - Last 24 Hours (Table) 06/05/18 06/05/18 Range/Units 06:20 06:20 RBC 4.14 L (4.30-5.90) m/uL Hgb 12.4 L (13.0-17.5) gm/dL Hct 37.3 L (39.0-53.0) % Chloride 108 H (98-107) mmol/L Assessment and Plan (1) Meckel diverticulum Current Visit: Yes Status: Acute Code(s): Q43.0 - MECKEL'S DIVERTICULUM ( DISPLACED) (HYPERTROPHIC) SNOMED Code(s): 23508908 (2) Lactic acid acidosis Current Visit: Yes Status: Acute Code(s): E87.2 - ACIDOSIS SNOMED Code(s) : 43479453 (3) Leukocytosis Current Visit: Yes Status: Acute Code(s): D72.829 - ELEVATED WHITE BLOOD CELL COUNT, UNSPECIFIED SNOMED Code(s): 394297490 (4) SBO (small bowel obstruction) Current Visit: Yes Status: Acute Code(s): K56.609 - UNSP INTESTNL OBST, UNSP TO PARTIAL VERSUS COMPLETE OBST SNOMED Code(s): 938962357 (5) Status post small bowel resection Current Visit: Yes Status: Acute Code(s): Z90.49 - ACQUIRED ABSENCE OF OTHER SPECIFIED PARTS OF DIGESTIVE TRACT SNOMED Code(s): 339837969319237
--- NOTE | 2018-06-05 13:52 | P.DS ---
Providers Date of admission: 06/01/18 16:55 Expected date of discharge: 06/05/18 Attending physician: Errol Baxter Consults: 06/01/18 17:10 Consult Physician Stat Consulting Provider: Papito Villanueva Consult Reason/Comments: medical management, SBO Do you want consulting provider notified?: Yes Primary care physician: Edgardo Danish - Discharge Diagnosis(es) (1) Meckel diverticulum Current Visit: Yes Status: Acute (2) Lactic acid acidosis Current Visit: Yes Status: Acute (3) Leukocytosis Current Visit: Yes Status: Acute (4) SBO (small bowel obstruction) Current Visit: Yes Status: Acute (5) Status post small bowel resection Current Visit: Yes Status: Acute Hospital Course: CHIEF COMPLAINT: Status post small bowel resection for small bowel obstruction HISTORY OF PRESENT ILLNESS: The patient is a 22 year old male who is status post small bowel resection for small bowel obstruction, postop day 3. He was admitted secondary to leukocytosis as well as bowel obstruction findings consistent with Meckel's. Prior to discharge he was tolerating diet and passing flatus. PHYSICAL EXAM: VITAL SIGNS: Reviewed GENERAL: Well-developed in no acute distress. HEENT: No sclera icterus. Extraocular movements grossly intact. Moist buccal mucosa. Head is atraumatic, normocephalic. Hears conversational speech. No nasal drainage. NECK: Supple without lymphadenopathy. CHEST: Non-labored respirations and equal bilateral excursions. CARDIOVASCULAR: Regular rate with regular rhythm. ABDOMEN: Soft, nondistended, incisions clean dry and intact . MUSCULOSKELETAL: No clubbing, cyanosis or edema. NEUROLOGIC: No focal or lateralizing signs. Cranial nerves II through XII grossly intact. PSYCH: Alert and oriented to person, place and time. SKIN: Well perfused. Good skin turgor. LABS: Reviewed ASSESSMENT: 1. Small bowel obstruction status post small bowel resection PLAN: 1. Regular diet today. 2. Discharge home today after tolerating diet Procedures: Small bowel resection with diagnostic laparoscopy Patient Condition at Discharge: Good Plan - Discharge Summary Discharge Rx Participant: No New Discharge Prescriptions: New Ibuprofen [Motrin] 600 mg PO Q8HR PRN #20 tab PRN Reason: Pain Continue Ranitidine HCl [Zantac] 150 mg PO HS Albuterol Inhaler [Ventolin Hfa Inhaler] 2 puff INHALATION RT-Q4H PRN PRN Reason: Shortness Of Breath cloNIDine HCL [Catapres] 0.2 mg PO HS Methylphenidate HCl [Methylphenidate HCl CD] 30 mg PO QAM Fluticasone Nasal [place] [Flonase Nasal [place]] 1 spray EA NOSTRIL DAILY No Action cloNIDine HCL [Catapres] 0.1 mg PO BID Discharge Medication List Albuterol Inhaler [Ventolin Hfa Inhaler] 2 puff INHALATION RT-Q4H PRN 06/01/18 [ History] Fluticasone Nasal [place] [Flonase Nasal [place]] 1 spray EA NOSTRIL DAILY 06/01/18 [History] Methylphenidate HCl [Methylphenidate HCl CD] 30 mg PO QAM 06/01/18 [History] Ranitidine HCl [Zantac] 150 mg PO HS 06/01/18 [History] cloNIDine HCL [Catapres] 0.1 mg PO BID 06/01/18 [History] cloNIDine HCL [Catapres] 0.2 mg PO HS 06/01/18 [History] Ibuprofen [Motrin] 600 mg PO Q8HR PRN #20 tab 06/05/18 [Rx] Follow up Appointment(s)/Referral(s): Errol Baxter MD [Medical Doctor] - 2 Weeks [facility], [NON-STAFF] - Edgardo Romero MD [Primary Care Provider] - 1-2 days Patient Instructions/Handouts: Exploratory Laparotomy (IP) Activity/Diet/Wound Care/Special Instructions: No lifting over 4 pounds in 2 weeks. May shower. No bathtub soaks. Use tylenol of Ibuprofen for pain to avoid constipation. Discharge Disposition: HOME SELF-CARE
[2018-06-05 15:38] VITALS: BP 125/80; PULSE 60; TEMP 98.2
[2018-06-05] MEDS ORDERED: metroNIDAZOLE 500 MG TAB PO SCH (16:00)
[2018-06-05] MEDS ORDERED: LEVOFLOXACIN 750 MG TAB PO SCH (18:00)
--- NOTE | 2018-06-05 21:00 | PN ---
PROGRESS NOTE DATE OF SERVICE: 06/05/2008 This is a 22-year-old gentleman who was admitted with small bowel obstruction and status post small bowel resection. The patient has improved significantly. The diet has been advanced. No chest pain. No palpitations. No fever. EXAM: Alert and oriented. Pulse 59, blood pressure 127/78, respiration 14, temperature 98.2 pulse ox 98% on room air. HEENT: Conjunctivae normal. Oral mucosa moist. NECK: No jugular venous distention. No lymph node enlargement. CARDIOVASCULAR: S1, S2. RESPIRATORY: Diminished breath sounds at the bases. No rhonchi, no crackles. ABDOMEN: Soft, nontender. LEGS: No swelling. NERVOUS SYSTEM: No focal deficits. LAB STUDIES: WBC 6.1, hemoglobin 12.4. ASSESSMENT: 1. Small-bowel obstruction, status post partial small bowel resection, believed to be secondary to Meckel's diverticulum. 2. Acute renal failure secondary to dehydration, improved. 3. Leukocytosis. 4. Lactic acidosis. 5. Psychiatric issues. 6. GERD. RECOMMENDATIONS: Recommend to continue current management, continue symptomatic treatment. Otherwise, continue with DVT prophylaxis, incentive spirometry. Resume the home medications. Closely follow with primary physician. The rest of the recommendations per surgery. Further recommendations to follow. MMODL / IJN: [id number] /
== END 2018-06-05 16:04 | disposition home or self-care (01) | DRG 330 ==
LOC: EC 15:20 → 4SSUR 16:55
PROVIDERS: ADMIT Surgery; ATTEND Surgery
PROC: 0DT80ZZ Resection of Small Intestine, Open Approach (ICD-10-PCS; principal; 2018-06-02 07:30)
DX: Q43.0 Meckel's diverticulum (displaced) (hypertrophic) (principal); E87.2 Acidosis; N17.9 Acute kidney failure, unspecified; E86.0 Dehydration; K21.9 Gastro-esophageal reflux disease without esophagitis; R33.9 Retention of urine, unspecified; Z83.3 Family history of diabetes mellitus; Z79.899 Other long term (current) drug therapy; Z79.51 Long term (current) use of inhaled steroids; Z88.0 Allergy status to penicillin
CPT/HCPCS: 80048; 80053; 82150; 83605; 85025; 88307; 96374; 96375; 99285

== ENCOUNTER 2019-04-01 23:37 | Emergency (ER) | payer OTHER ==
[2019-04-02] MEDS ORDERED: SODIUM CHLORIDE 0.9% 1,000 ML IV STA (00:17)
[2019-04-02 01:10] VITALS: PULSE 62; RESP 18; TEMP 98.3
--- NOTE | 2019-04-02 01:17 | ED ---
General Adult HPI - General Chief complaint: Alcohol Stated complaint: ETOH Time Seen by Provider: 04/01/19 23:39 Source: patient, EMS, RN notes reviewed, old records reviewed Mode of arrival: EMS - History of Present Illness Initial comments: 23-year-old male patient presents ED chief complaint alcohol intoxication. Patient port that he was having an with friends, drinking multiple alcoholic drinks. Reports smoking marijuana, however denies any other illicit drug use. Patient reports that he became very intoxicated. Patient reports that he went outside and lay down because he felt sick. Friends were concerned so they transported him Hospital. Denies any other complaints. Systemic: Pt denies fatigue, fever/chills, rash. Pt denies weakness, night sweats, weight loss. Neuro: Pt denies headache, visual disturbances, syncope or pre-syncope. HEENT: Pt denies ocular discharge or irritation, otalgia, rhinorrhea, pharyngitis or notable lymphadenopathy. Cardiopulmonary: Pt denies chest pain, SOB, heart palpitations, dyspnea on exertion. Abdominal/GI: Pt denies abdominal pain, n/v/d. : Pt denies dysuria, burning w/ urination, frequency/urgency. Denies new onset urinary or bowel incontinence. MSK: Pt denies myalgia, loss of strength or function in extremities. Neuro: Pt denies new onset weakness, paresthesias. - Related Data Home Medications Medication Instructions Recorded Confirmed Albuterol Inhaler [Ventolin Hfa 2 puff INHALATION RT-Q4H PRN 06/01/18 06/01/18 Inhaler] Fluticasone Nasal [place] [Flonase 1 spray EA NOSTRIL DAILY 06/01/18 06/01/18 Nasal [place]] Methylphenidate HCl 30 mg PO QAM 06/01/18 06/01/18 [Methylphenidate HCl CD] Ranitidine HCl [Zantac] 150 mg PO HS 06/01/18 06/01/18 cloNIDine HCL [Catapres] 0.1 mg PO BID 06/01/18 06/01/18 cloNIDine HCL [Catapres] 0.2 mg PO HS 06/01/18 06/01/18 Previous Rx's Medication Instructions Recorded Ibuprofen [Motrin] 600 mg PO Q8HR PRN #20 tab 06/05/18 Allergies Allergy/AdvReac Type Severity Reaction Status Date / Time Penicillins Allergy Unknown Verified 06/01/18 15:29 Childhood Review of Systems ROS Statement: Those systems with pertinent positive or pertinent negative responses have been documented in the HPI. ROS Other: All systems not noted in ROS Statement are negative. Past Medical History Past Medical History: GERD/Reflux History of Any Multi-Drug Resistant Organisms: None Reported Past Surgical History: No Surgical Hx Reported Additional Past Surgical History / Comment(s): bowel resection Past Anesthesia/Blood Transfusion Reactions: No Reported Reaction Past Psychological History: No Psychological Hx Reported Smoking Status: Never smoker Past Alcohol Use History: None Reported Past Drug Use History: Marijuana - Past Family History Mother Family Medical History: Diabetes Mellitus General Exam - General Exam Comments Initial Comments: Constitutional: NAD, AOX3, Pt has pleasant affect. HEENT: NC/AT, trachea midline, neck supple, no lymphadenopathy. Posterior pharynx non erythematous, without exudates. External ears appear normal, without discharge. Mucous membranes moist. Eyes PERRLA, EOM intact. There is no scleral icterus. No pallor noted. Cardiopulmonary: RRR, no murmurs, rubs or gallops, no JVD noted. Lungs CTAB in anterior and posterior ferraro. No peripheral edema. Abdominal exam: Abdomen soft and non-distended. Abdomen non-tender to palpation in all 4 quadrants. Bowel sounds active in LLQ. No hepatosplenomegaly. No ecchymosis Neuro: CN II-XII intact. No nuchal rigidity. No raccon eyes, no underwood sign, no hemotympanum. No cervical spinal tenderness. MSK: No posterior calf tenderness bilaterally, homans sign negative bilaterally. Posterior tibialis and radial pulse +2 bilaterally. Sensation intact in upper and lower extremities. Full active ROM in upper and lower extremities, 5/5 stregnth. Course Vital Signs 04/01/19 04/02/19 23:43 01:08 Temperature 98.4 F 98.3 F Pulse Rate 64 62 Respiratory 16 18 Rate Blood Pressure 106/75 98/87 O2 Sat by Pulse 100 97 Oximetry Medical Decision Making - Medical Decision Making 23-year-old male patient to see for alcohol intoxication. Patient vital signs are stable, afebrile. Physical exam did not display Acute pathology. Neurologic exam within normal limits. Patient is alert and oriented 3. Denies any falls or trauma. Patient ambulatory. Patient will be discharged with friend who will monitor him. Case discussed with Dr. Christianson. Disposition Clinical Impression: Alcohol intoxication Disposition: HOME SELF-CARE Condition: Stable Instructions (If sedation given, give patient instructions): Alcohol Intoxication (ED) Additional Instructions: Patient to adhere to previously discussed treatment plan and will take medication(s) as directed. Patient to follow up with PCP in 1-2 days. Patient to return to ED if symptoms do not improve. Follow-up with primary care provider, return to ER if condition worsens. Do not drink anymore alcohol. Do not use any drugs. Is patient prescribed a controlled substance at d/c from ED?: No Referrals: Edgardo Romero MD [Primary Care Provider] - 1-2 days
[2019-04-02 01:24] VITALS: BP 101/80
== END 2019-04-02 01:41 | disposition home or self-care (01) ==
LOC: EC 23:37
DX: F10.129 Alcohol abuse with intoxication, unspecified (principal); F12.90 Cannabis use, unspecified, uncomplicated; K21.9 Gastro-esophageal reflux disease without esophagitis; Z79.899 Other long term (current) drug therapy; Z88.0 Allergy status to penicillin; Z90.49 Acquired absence of other specified parts of digestive tract
CPT/HCPCS: 96360; 96361; 99284